=== PATIENT | female | born 1985 | race Two or more races ===

== ENCOUNTER 2020-11-08 10:53 | Inpatient (IN) | payer MEDICARE, MEDICAID ==
[~2020-11-08] VITALS: Ht 160 cm; Wt 73.4 kg
[2020-11-08] VITALS (29 sets, daily range): BP systolic 76–104; BP diastolic 36–145
[2020-11-08] MEDS ORDERED: SODIUM CHLORIDE 0.9% 1,000 ML IVB ONE (12:00)
[2020-11-08 12:04] LABS: Albumin 2.5 g/dL (3.4-5.0); Calcium 6.9 mg/dL (8.5-10.1); Potassium 3.7 mmol/L (3.5-5.1)
[2020-11-08 12:07] LABS: Basophils # (auto) 0 10 ^3/uL (0-0.2); Basophils % (auto) 0.3 % (0.0-2.0); Eosinophils # (auto) 0 10 ^3/uL (0-0.8); Hematocrit 34.3 % (36.0-46.0); Hemoglobin 11.5 g/dL (12.2-16.2); Lymphocytes # (auto) 0.7 10 ^3/uL (0.4-5.4); Lymphocytes % (auto) 12.9 % (10.0-50.0); Mean Corpuscular Hemoglobin 34.4 pg (28.0-32.0); Mean Corpuscular Hgb Conc. 33.4 g/dL (32.0-36.0); Mean Corpuscular Volume 102.8 fL (80.0-100.0); Monocytes # (auto) 0.3 10 ^3/uL (0-1.3); Monocytes % (auto) 4.3 % (0.0-12.0); Neutrophils # (auto) 4.8 10 ^3/uL (1.6-8.6); Neutrophils % (auto) 82.5 % (37.0-80.0); Nucleated Red Blood Cells % 0.3 %; Red Blood Cells 3.34 10^6/uL (4.0-5.20); Red Cell Distribution Width 15.2 % (11.8-14.3); White Blood Cell 5.8 10^3/uL (4.4-10.8)
[2020-11-08 12:09] LABS: BUN/Creatinine Ratio 12.2; Bilirubin, Total 0.2 mg/dL (0.2-1.0); Total Protein 6.6 g/dL (6.4-8.2)
[2020-11-08] MEDS ORDERED: SODIUM CHLORIDE 0.9% 1,000 ML IV ONE ×2 (12:45→13:45)
[2020-11-08] MEDS ORDERED: PROMETHAZINE HCL 25 MG/ML 1ML IV PRN (13:45)
[2020-11-08] MEDS ORDERED: DexAMETHasone SOD PHOS 10MG/1ML VIAL INJ IV ONE (13:45)
[2020-11-08] MEDS ORDERED: ACETAMINOPHEN 500 MG TAB PO PRN (13:45)
[2020-11-08] MEDS ORDERED: ALBUTEROL SULF HFA 90MCG INH 200DOSE IN PRN (13:45)
[2020-11-08] MEDS ORDERED: REMDESIVIR PER PHARMACY 0 ML IV SCH (13:45)
[2020-11-08] MEDS ORDERED: LACTULOSE 20Gm/30ML SOLN PO PRN (13:45)
[2020-11-08] MEDS ORDERED: NITROGLYCERIN 0.4 MG SL TAB SL PRN (13:45)
[2020-11-08] MEDS ORDERED: MORPHINE SULF INJ 2 MG/ML SYRINGE 1ML IV PRN ×2 (13:45)
[2020-11-08] MEDS ORDERED: levoFLOXacin 500MG 100 ML IV ONE (13:45)
[2020-11-08] MEDS: SODIUM CHLORIDE 0.9% 1,000 ML IV SCH (14:33)
[2020-11-08] MEDS: NOREPINEPHRINE 8 MG/250ML KIT 250 ML IV SCH (14:33)
[2020-11-08] MEDS: FAMOTIDINE (10MG/ML) 2ML VL IV SCH (16:42)
[2020-11-08] MEDS ORDERED: REMDESIVIR 200 MG in NS 210ml LOADING DOSE ADULT IV ONE (17:00)
[2020-11-08] MEDS ORDERED: diphenhdrAMINE HCL 50 MG/1 ML VL IV ONE (18:00)
[2020-11-08] MEDS ORDERED: methylPREDNISolone SOD SUCC 40 MG/ML VL IV ONE (18:00)
[2020-11-08] MEDS ORDERED: ACETAMINOPHEN 650 mg PER 20.3 mL UD PO ONE (18:00)
[2020-11-08] MEDS ORDERED: TOCILIZUMAB 400 MG in SODIUM CHL 0.9% 80 ML IV ONE (18:30)
[2020-11-08] MEDS: FLORASTOR (S. BOULARDII) 250 MG CAP PO SCH (21:28)
[2020-11-08] MEDS ORDERED: BUDESONIDE (INHALATION) 180 MCG IH IN SCH (22:00)
[2020-11-08] MEDS: ALBUTEROL SULF 2.5 MG/0.5ML(0.5%) NEB SOLN NEB PRN (22:19)
[2020-11-08] MEDS: BUDESONIDE (INHALATION) 0.5 MG/2 ML NEB NEB SCH (22:20)
[2020-11-08] MEDS: ENOXAPARIN SOD 40 MG/0.4 ML SYRINGE SC SCH (22:23)
[2020-11-09] VITALS (68 sets, daily range): BP systolic 85–120; BP diastolic 48–75
[2020-11-09] MEDS: FAMOTIDINE (10MG/ML) 2ML VL IV SCH ×2 (01:28→14:00)
[2020-11-09 04:14] LABS: Basophils # (auto) 0 10 ^3/uL (0-0.2); Basophils % (auto) 0.1 % (0.0-2.0); Eosinophils # (auto) 0 10 ^3/uL (0-0.8); Lymphocytes # (auto) 0.5 10 ^3/uL (0.4-5.4); Mean Corpuscular Hemoglobin 35.9 pg (28.0-32.0); Monocytes # (auto) 0.2 10 ^3/uL (0-1.3); Red Blood Cells 3.33 10^6/uL (4.0-5.20)
[2020-11-09 04:16] LABS: Hematocrit 34.1 % (36.0-46.0); Lymphocytes % (auto) 8.5 % (10.0-50.0); Mean Corpuscular Hgb Conc. 35.1 g/dL (32.0-36.0); Mean Corpuscular Volume 102.3 fL (80.0-100.0); Monocytes % (auto) 4.2 % (0.0-12.0); Neutrophils # (auto) 4.7 10 ^3/uL (1.6-8.6); Neutrophils % (auto) 87.2 % (37.0-80.0); Nucleated Red Blood Cells % 0.6 %; Red Cell Distribution Width 15.5 % (11.8-14.3); White Blood Cell 5.4 10^3/uL (4.4-10.8)
[2020-11-09 04:34] LABS: Albumin 2.3 g/dL (3.4-5.0); Calcium 6.8 mg/dL (8.5-10.1); Potassium 4.6 mmol/L (3.5-5.1)
[2020-11-09 04:36] LABS: BUN/Creatinine Ratio 13.8
[2020-11-09 04:39] LABS: Bilirubin, Total 0.2 mg/dL (0.2-1.0); Total Protein 6.8 g/dL (6.4-8.2)
[2020-11-09] MEDS: SODIUM CHLORIDE 0.9% 1,000 ML IV SCH ×2 (05:00→16:25)
[2020-11-09] MEDS: ASCORBIC ACID 1,000 MG TAB PO SCH (09:31)
[2020-11-09] MEDS: ZINC SULFATE 220mg CAP or TAB PO SCH (09:31)
[2020-11-09] MEDS: DexAMETHasone SOD PHOS 10MG/1ML VIAL INJ IV SCH (09:31)
[2020-11-09] MEDS: FLORASTOR (S. BOULARDII) 250 MG CAP PO SCH ×2 (09:31→22:00)
[2020-11-09] MEDS: CHOLECALCIFEROL (VITD3) 2,000 UNIT CAP/TAB PO SCH (09:32)
[2020-11-09] MEDS: ENOXAPARIN SOD 40 MG/0.4 ML SYRINGE SC SCH ×2 (09:32→22:00)
[2020-11-09] MEDS ORDERED: ACETAMINOPHEN 650 mg PER 20.3 mL UD PO ONE ×2 (10:00→17:30)
[2020-11-09] MEDS ORDERED: AZIT250T9 PO (10:00)
[2020-11-09] MEDS ORDERED: PROM25TA5 PO (10:00)
[2020-11-09] MEDS ORDERED: LEVO50TA7 PO (10:00)
[2020-11-09] MEDS ORDERED: diphenhdrAMINE HCL 50 MG/1 ML VL IV ONE ×2 (10:00→17:30)
[2020-11-09] MEDS ORDERED: levoFLOXacin 500MG 100 ML IV SCH (10:00)
[2020-11-09] MEDS ORDERED: TOCILIZUMAB 400 MG in SODIUM CHL 0.9% 80 ML IV ONE ×2 (10:30→18:00)
[2020-11-09] MEDS ORDERED: diphenhdrAMINE HCL 50 MG/1 ML VL IV PRN (11:15)
[2020-11-09] MEDS ORDERED: FUROSEMIDE 20 MG/2 ML VIAL IV ONE (11:15)
[2020-11-09] MEDS: BUDESONIDE (INHALATION) 0.5 MG/2 ML NEB NEB SCH ×2 (12:24→22:50)
[2020-11-09] MEDS: NOREPINEPHRINE 8 MG/250ML KIT 250 ML IV SCH (13:45)
[2020-11-09] MEDS: REMDESIVIR 100mg 100 MG in SODIUM CHL 0.9% 230 ML IV SCH (15:30)
[2020-11-09] MEDS ORDERED: methylPREDNISolone SOD SUCC 40 MG/ML VL IV ONE (17:30)
[2020-11-09] MEDS: Ensure Enlive Strawberry 8oz Bottle PO SCH (18:10)
[2020-11-09] MEDS: ALBUTEROL SULF 2.5 MG/0.5ML(0.5%) NEB SOLN NEB PRN (22:50)
[2020-11-10] VITALS (29 sets, daily range): BP systolic 87–98; BP diastolic 47–66
[2020-11-10] MEDS: FAMOTIDINE (10MG/ML) 2ML VL IV SCH ×2 (01:45→12:20)
[2020-11-10 04:11] LABS: Red Blood Cells 3.23 10^6/uL (4.0-5.20); White Blood Cell 3.6 10^3/uL (4.4-10.8)
[2020-11-10 04:13] LABS: Hematocrit 33.2 % (36.0-46.0); Hemoglobin 11.5 g/dL (12.2-16.2); Mean Corpuscular Hemoglobin 35.6 pg (28.0-32.0); Mean Corpuscular Hgb Conc. 34.5 g/dL (32.0-36.0); Red Cell Distribution Width 15.4 % (11.8-14.3)
[2020-11-10 04:25] LABS: Basophils % (manual) 0 (0.0-2.0); Blast Cells 0; Eosinophils % (manual) 0 (0-7); Myelocytes % 0; Promyelocytes % 0; Reactive Lymphocytes 0
[2020-11-10 04:30] LABS: Albumin 2.3 g/dL (3.4-5.0); BUN/Creatinine Ratio 20.9; Calcium 7.3 mg/dL (8.5-10.1); Potassium 4.3 mmol/L (3.5-5.1)
[2020-11-10 04:32] LABS: Bilirubin, Total 0.2 mg/dL (0.2-1.0); Total Protein 6.5 g/dL (6.4-8.2)
[2020-11-10 05:42] LABS: Band Neutrophils % (manual) 20; Lymphocytes % (manual) 9 (10.0-50.0); Metamyelocytes % 1; Monocytes % (manual) 10 (0-12)
[2020-11-10] MEDS: LEVOTHYROXINE SODIUM 50 MCG TAB PO SCH (06:25)
[2020-11-10] MEDS: ALBUTEROL SULF 2.5 MG/0.5ML(0.5%) NEB SOLN NEB PRN ×3 (06:40→20:02)
[2020-11-10] MEDS: BUDESONIDE (INHALATION) 0.5 MG/2 ML NEB NEB SCH ×4 (06:40→20:02)
[2020-11-10] MEDS: ENOXAPARIN SOD 40 MG/0.4 ML SYRINGE SC SCH ×2 (08:23→22:17)
[2020-11-10] MEDS: CHOLECALCIFEROL (VITD3) 2,000 UNIT CAP/TAB PO SCH (08:23)
[2020-11-10] MEDS: ASCORBIC ACID 1,000 MG TAB PO SCH (08:23)
[2020-11-10] MEDS: ZINC SULFATE 220mg CAP or TAB PO SCH (08:23)
[2020-11-10] MEDS: FLORASTOR (S. BOULARDII) 250 MG CAP PO SCH (08:23)
[2020-11-10] MEDS: DexAMETHasone SOD PHOS 10MG/1ML VIAL INJ IV SCH (08:23)
[2020-11-10] MEDS: Ensure Enlive Strawberry 8oz Bottle PO SCH ×3 (08:24→16:30)
[2020-11-10] MEDS: NOREPINEPHRINE 8 MG/250ML KIT 250 ML IV SCH (08:24)
[2020-11-10] MEDS ORDERED: TPN PER PHARMACY 0 ML IV SCH ×2 (11:15→14:30)
[2020-11-10] MEDS ORDERED: FUROSEMIDE 20 MG/2 ML VIAL IV ONE (11:15)
[2020-11-10 13:47] LABS: INR 1.1 (0.9-1.15); Partial Thromboplastin Time 36.3 sec (23.0-31.2)
[2020-11-10 14:13] LABS: Magnesium 2.7 mg/dL (1.6-2.6); Phosphorus 2.3 mg/dL (2.5-4.90)
[2020-11-10 14:18] LABS: Pre Albumin 12.4 mg/dL (20.0-40.0)
[2020-11-10] MEDS: REMDESIVIR 100mg 100 MG in SODIUM CHL 0.9% 230 ML IV SCH (15:03)
[2020-11-10] MEDS ORDERED: SODIUM PHOSPHATES 20 MEQ in SODIUM CHL 0.9% 100 ML IV ONE (15:15)
[2020-11-10] MEDS ORDERED: LIDOCAINE 1% (LOCAL ANESTH.) PF 5ml SDV ID ONE (16:45)
[2020-11-10] MEDS ORDERED: methylPREDNISolone SOD SUCC 40 MG/ML VL IV ONE (17:30)
[2020-11-10] MEDS ORDERED: diphenhdrAMINE HCL 50 MG/1 ML VL IV ONE (17:30)
[2020-11-10] MEDS ORDERED: ACETAMINOPHEN 650 mg PER 20.3 mL UD PO ONE (17:30)
[2020-11-10] MEDS ORDERED: TOCILIZUMAB 400 MG in SODIUM CHL 0.9% 80 ML IV ONE (18:00)
[2020-11-10] MEDS ORDERED: AMINO ACID INFUSION IN D10W 1,000 ML IV NR (20:00)
[2020-11-10] MEDS: SODIUM CHLOR 0.9% PF (SALINE LOCK) 10ML VIAL/SYR IV SCH (22:17)
[2020-11-11] VITALS (45 sets, daily range): BP systolic 83–118; BP diastolic 56–78
[2020-11-11] MEDS ORDERED: DEXTROSE (50%) 50ML SYRG IV SCH
[2020-11-11] MEDS: ACCU-CHEK COMFORT CURVE STRIP VI SCH ×4 (02:49→17:29)
[2020-11-11] MEDS: FAMOTIDINE (10MG/ML) 2ML VL IV SCH ×2 (02:49→14:23)
[2020-11-11] MEDS: InsuLIN REG 1unit/0.01ml Soln (100units/ml) SC SCH ×4 (02:49→17:30)
[2020-11-11 05:01] LABS: Albumin 2.5 g/dL (3.4-5.0); Calcium 7.5 mg/dL (8.5-10.1); Magnesium 2.5 mg/dL (1.6-2.6); Potassium 3.9 mmol/L (3.5-5.1)
[2020-11-11 05:04] LABS: BUN/Creatinine Ratio 23.7; Bilirubin, Total 0.2 mg/dL (0.2-1.0); Phosphorus 2.6 mg/dL (2.5-4.90); Total Protein 6.7 g/dL (6.4-8.2)
[2020-11-11] MEDS: ALBUTEROL SULF 2.5 MG/0.5ML(0.5%) NEB SOLN NEB PRN ×2 (05:49→22:10)
[2020-11-11] MEDS: LEVOTHYROXINE SODIUM 50 MCG TAB PO SCH (06:04)
[2020-11-11] MEDS: Ensure Enlive Strawberry 8oz Bottle PO SCH ×3 (08:00→17:32)
[2020-11-11] MEDS: DexAMETHasone SOD PHOS 10MG/1ML VIAL INJ IV SCH (09:29)
[2020-11-11] MEDS: ENOXAPARIN SOD 40 MG/0.4 ML SYRINGE SC SCH ×2 (09:29→22:12)
[2020-11-11] MEDS: ASCORBIC ACID 1,000 MG TAB PO SCH (09:30)
[2020-11-11] MEDS: CHOLECALCIFEROL (VITD3) 2,000 UNIT CAP/TAB PO SCH (09:30)
[2020-11-11] MEDS: ZINC SULFATE 220mg CAP or TAB PO SCH (09:30)
[2020-11-11] MEDS: FUROSEMIDE 20 MG/2 ML VIAL IV SCH (09:30)
[2020-11-11] MEDS: SODIUM CHLOR 0.9% PF (SALINE LOCK) 10ML VIAL/SYR IV SCH ×2 (09:31→22:12)
[2020-11-11] MEDS: BUDESONIDE (INHALATION) 0.5 MG/2 ML NEB NEB SCH ×2 (09:46→22:11)
[2020-11-11] MEDS ORDERED: INSULIN LANTUS (GLARGINE) 1 /0.01ml (100units/ml) SC ONE (13:00)
[2020-11-11] MEDS: NOREPINEPHRINE 8 MG/250ML KIT 250 ML IV SCH ×2 (14:15→18:37)
[2020-11-11] MEDS: REMDESIVIR 100mg 100 MG in SODIUM CHL 0.9% 230 ML IV SCH (15:04)
[2020-11-11] MEDS ORDERED: TPN PER PHARMACY IV NR ×11 (20:00)
[2020-11-12] VITALS (104 sets, daily range): BP systolic 87–123; BP diastolic 58–85
[2020-11-12] MEDS: InsuLIN REG 1unit/0.01ml Soln (100units/ml) SC SCH ×4 (00:01→17:48)
[2020-11-12] MEDS: FAMOTIDINE (10MG/ML) 2ML VL IV SCH ×2 (01:44→13:45)
[2020-11-12 04:40] LABS: Albumin 2.7 g/dL (3.4-5.0); Calcium 7.6 mg/dL (8.5-10.1); Magnesium 2.4 mg/dL (1.6-2.6); Potassium 3.7 mmol/L (3.5-5.1)
[2020-11-12 04:45] LABS: BUN/Creatinine Ratio 21.2; Bilirubin, Total 0.3 mg/dL (0.2-1.0); Hematocrit 40.8 % (36.0-46.0); Hemoglobin 14.2 g/dL (12.2-16.2); Mean Corpuscular Hemoglobin 35.4 pg (28.0-32.0); Mean Corpuscular Hgb Conc. 34.8 g/dL (32.0-36.0); Mean Corpuscular Volume 101.6 fL (80.0-100.0); Phosphorus 1.9 mg/dL (2.5-4.90); Red Blood Cells 4.02 10^6/uL (4.0-5.20); Red Cell Distribution Width 14.7 % (11.8-14.3); White Blood Cell 7.4 10^3/uL (4.4-10.8)
[2020-11-12 05:16] LABS: Basophils % (manual) 0 (0.0-2.0); Blast Cells 0; Eosinophils % (manual) 0 (0-7); Promyelocytes % 0; Reactive Lymphocytes 0
[2020-11-12] MEDS: ACCU-CHEK COMFORT CURVE STRIP VI SCH ×4 (06:01→17:48)
[2020-11-12] MEDS: LEVOTHYROXINE SODIUM 50 MCG TAB PO SCH (06:03)
[2020-11-12 06:47] LABS: Band Neutrophils % (manual) 9; Lymphocytes % (manual) 11 (10.0-50.0); Metamyelocytes % 1; Monocytes % (manual) 13 (0-12); Myelocytes % 3
[2020-11-12] MEDS: Ensure Enlive Strawberry 8oz Bottle PO SCH ×3 (08:00→18:00)
[2020-11-12] MEDS ORDERED: POTASSIUM PHOSPHATE 44 MEQ in D5W 5% 250 ML IV ONE (08:30)
[2020-11-12] MEDS: BUDESONIDE (INHALATION) 0.5 MG/2 ML NEB NEB SCH ×2 (10:00→18:49)
[2020-11-12] MEDS: DexAMETHasone SOD PHOS 10MG/1ML VIAL INJ IV SCH (11:28)
[2020-11-12] MEDS: FUROSEMIDE 20 MG/2 ML VIAL IV SCH (11:29)
[2020-11-12] MEDS: ASCORBIC ACID 1,000 MG TAB PO SCH (11:30)
[2020-11-12] MEDS: SODIUM CHLOR 0.9% PF (SALINE LOCK) 10ML VIAL/SYR IV SCH ×2 (11:30→22:13)
[2020-11-12] MEDS: CHOLECALCIFEROL (VITD3) 2,000 UNIT CAP/TAB PO SCH (11:31)
[2020-11-12] MEDS: ENOXAPARIN SOD 40 MG/0.4 ML SYRINGE SC SCH ×2 (11:32→22:13)
[2020-11-12] MEDS: INSULIN LANTUS (GLARGINE) 1 /0.01ml (100units/ml) SC SCH ×2 (11:33→22:15)
[2020-11-12] MEDS: ZINC SULFATE 220mg CAP or TAB PO SCH (12:30)
[2020-11-12] MEDS: REMDESIVIR 100mg 100 MG in SODIUM CHL 0.9% 230 ML IV SCH (17:46)
[2020-11-12] MEDS: ALBUTEROL SULF 2.5 MG/0.5ML(0.5%) NEB SOLN NEB PRN (18:49)
[2020-11-12] MEDS: TPN PER PHARMACY IV NR ×12 (20:31)
[2020-11-13] VITALS (95 sets, daily range): BP systolic 75–115; BP diastolic 48–79
[2020-11-13] MEDS: ACCU-CHEK COMFORT CURVE STRIP VI SCH ×5 (00:32→22:32)
[2020-11-13] MEDS: InsuLIN REG 1unit/0.01ml Soln (100units/ml) SC SCH ×4 (00:36→17:58)
[2020-11-13] MEDS: FAMOTIDINE (10MG/ML) 2ML VL IV SCH ×2 (01:47→14:25)
[2020-11-13 04:12] LABS: Potassium 3.9 mmol/L (3.5-5.1)
[2020-11-13 04:17] LABS: Albumin 2.7 g/dL (3.4-5.0); BUN/Creatinine Ratio 24.4; Calcium 8.2 mg/dL (8.5-10.1); Magnesium 2.4 mg/dL (1.6-2.6)
[2020-11-13 04:20] LABS: Bilirubin, Total 0.3 mg/dL (0.2-1.0); Phosphorus 3.3 mg/dL (2.5-4.90); Total Protein 7.3 g/dL (6.4-8.2)
[2020-11-13] MEDS: LEVOTHYROXINE SODIUM 50 MCG TAB PO SCH (06:23)
[2020-11-13] MEDS: Ensure Enlive Strawberry 8oz Bottle PO SCH ×3 (08:00→17:57)
[2020-11-13] MEDS: BUDESONIDE (INHALATION) 0.5 MG/2 ML NEB NEB SCH ×2 (09:17→22:40)
[2020-11-13] MEDS: ALBUTEROL SULF 2.5 MG/0.5ML(0.5%) NEB SOLN NEB PRN ×2 (09:17→22:41)
[2020-11-13] MEDS: DexAMETHasone SOD PHOS 10MG/1ML VIAL INJ IV SCH (09:41)
[2020-11-13] MEDS: CHOLECALCIFEROL (VITD3) 2,000 UNIT CAP/TAB PO SCH (09:42)
[2020-11-13] MEDS: SODIUM CHLOR 0.9% PF (SALINE LOCK) 10ML VIAL/SYR IV SCH ×2 (09:42→22:24)
[2020-11-13] MEDS: FUROSEMIDE 20 MG/2 ML VIAL IV SCH (09:42)
[2020-11-13] MEDS: ZINC SULFATE 220mg CAP or TAB PO SCH (09:42)
[2020-11-13] MEDS: ASCORBIC ACID 1,000 MG TAB PO SCH (09:42)
[2020-11-13] MEDS: INSULIN LANTUS (GLARGINE) 1 /0.01ml (100units/ml) SC SCH ×2 (09:43→22:31)
[2020-11-13] MEDS: ENOXAPARIN SOD 40 MG/0.4 ML SYRINGE SC SCH ×2 (09:43→22:24)
[2020-11-13] MEDS: NOREPINEPHRINE 8 MG/250ML KIT 250 ML IV SCH (13:45)
[2020-11-13] MEDS: TPN PER PHARMACY IV NR ×12 (19:55)
[2020-11-13] MEDS ORDERED: TPN PER PHARMACY IV NR ×11 (20:00)
[2020-11-14] VITALS (101 sets, daily range): BP systolic 84–135; BP diastolic 54–84
[2020-11-14] MEDS: FAMOTIDINE (10MG/ML) 2ML VL IV SCH ×2 (00:26→15:14)
[2020-11-14] MEDS: InsuLIN REG 1unit/0.01ml Soln (100units/ml) SC SCH ×5 (00:28→23:07)
[2020-11-14 04:41] LABS: Albumin 2.8 g/dL (3.4-5.0); Magnesium 2.4 mg/dL (1.6-2.6); Potassium 3.6 mmol/L (3.5-5.1)
[2020-11-14 04:45] LABS: BUN/Creatinine Ratio 32.5; Bilirubin, Total 0.4 mg/dL (0.2-1.0); Phosphorus 3.6 mg/dL (2.5-4.90); Total Protein 6.9 g/dL (6.4-8.2)
[2020-11-14] MEDS: ACCU-CHEK COMFORT CURVE STRIP VI SCH ×4 (06:55→23:06)
[2020-11-14] MEDS: LEVOTHYROXINE SODIUM 50 MCG TAB PO SCH (06:57)
[2020-11-14] MEDS: Ensure Enlive Strawberry 8oz Bottle PO SCH ×3 (08:00→20:41)
[2020-11-14] MEDS: INSULIN LANTUS (GLARGINE) 1 /0.01ml (100units/ml) SC SCH (10:00)
[2020-11-14] MEDS: BUDESONIDE (INHALATION) 0.5 MG/2 ML NEB NEB SCH ×2 (10:00→22:17)
[2020-11-14] MEDS: SODIUM CHLOR 0.9% PF (SALINE LOCK) 10ML VIAL/SYR IV SCH ×2 (10:00→22:40)
[2020-11-14] MEDS: CHOLECALCIFEROL (VITD3) 2,000 UNIT CAP/TAB PO SCH (10:22)
[2020-11-14] MEDS: ASCORBIC ACID 1,000 MG TAB PO SCH (10:23)
[2020-11-14] MEDS: DexAMETHasone SOD PHOS 10MG/1ML VIAL INJ IV SCH (10:23)
[2020-11-14] MEDS: FUROSEMIDE 20 MG/2 ML VIAL IV SCH (10:23)
[2020-11-14] MEDS: ZINC SULFATE 220mg CAP or TAB PO SCH (10:23)
[2020-11-14] MEDS: ENOXAPARIN SOD 40 MG/0.4 ML SYRINGE SC SCH ×2 (10:24→22:40)
[2020-11-14] MEDS: NOREPINEPHRINE 8 MG/250ML KIT 250 ML IV SCH (19:48)
[2020-11-14] MEDS ORDERED: TPN PER PHARMACY IV NR ×11 (20:00)
[2020-11-15] VITALS (53 sets, daily range): BP systolic 89–105; BP diastolic 52–78
[2020-11-15] MEDS: FAMOTIDINE (10MG/ML) 2ML VL IV SCH ×2 (01:33→14:36)
[2020-11-15 05:32] LABS: Eosinophils # (auto) 0 10 ^3/uL (0-0.8); Hemoglobin 14.8 g/dL (12.2-16.2); Lymphocytes # (auto) 0.6 10 ^3/uL (0.4-5.4)
[2020-11-15 05:34] LABS: Basophils # (auto) 0 10 ^3/uL (0-0.2); Basophils % (auto) 0.1 % (0.0-2.0); Hematocrit 43.5 % (36.0-46.0); Lymphocytes % (auto) 4.1 % (10.0-50.0); Mean Corpuscular Hemoglobin 34.8 pg (28.0-32.0); Mean Corpuscular Volume 102.4 fL (80.0-100.0); Monocytes # (auto) 0.8 10 ^3/uL (0-1.3); Monocytes % (auto) 5.3 % (0.0-12.0); Neutrophils # (auto) 14.3 10 ^3/uL (1.6-8.6); Neutrophils % (auto) 90.5 % (37.0-80.0); Nucleated Red Blood Cells % 0.3 %; Red Blood Cells 4.25 10^6/uL (4.0-5.20); White Blood Cell 15.8 10^3/uL (4.4-10.8)
[2020-11-15] MEDS: ACCU-CHEK COMFORT CURVE STRIP VI SCH ×3 (05:38→18:00)
[2020-11-15] MEDS: InsuLIN REG 1unit/0.01ml Soln (100units/ml) SC SCH ×3 (05:39→18:00)
[2020-11-15] MEDS: LEVOTHYROXINE SODIUM 50 MCG TAB PO SCH (05:40)
[2020-11-15 06:05] LABS: Potassium 4.2 mmol/L (3.5-5.1)
[2020-11-15 06:23] LABS: Albumin 2.8 g/dL (3.4-5.0); BUN/Creatinine Ratio 37.2; Bilirubin, Total 0.4 mg/dL (0.2-1.0); Calcium 7.9 mg/dL (8.5-10.1); Magnesium 2.6 mg/dL (1.6-2.6); Phosphorus 3.4 mg/dL (2.5-4.90); Total Protein 6.8 g/dL (6.4-8.2)
[2020-11-15] MEDS: Ensure Enlive Strawberry 8oz Bottle PO SCH ×3 (08:00→18:00)
[2020-11-15] MEDS: BUDESONIDE (INHALATION) 0.5 MG/2 ML NEB NEB SCH ×2 (10:00→22:28)
[2020-11-15] MEDS: FUROSEMIDE 20 MG/2 ML VIAL IV SCH (10:00)
[2020-11-15] MEDS: INSULIN LANTUS (GLARGINE) 1 /0.01ml (100units/ml) SC SCH (10:30)
[2020-11-15] MEDS: ASCORBIC ACID 1,000 MG TAB PO SCH (10:30)
[2020-11-15] MEDS: ENOXAPARIN SOD 40 MG/0.4 ML SYRINGE SC SCH ×2 (10:30→21:26)
[2020-11-15] MEDS: CHOLECALCIFEROL (VITD3) 2,000 UNIT CAP/TAB PO SCH (10:30)
[2020-11-15] MEDS: SODIUM CHLOR 0.9% PF (SALINE LOCK) 10ML VIAL/SYR IV SCH ×2 (10:30→21:26)
[2020-11-15] MEDS: ZINC SULFATE 220mg CAP or TAB PO SCH (10:30)
[2020-11-15] MEDS: DexAMETHasone SOD PHOS 10MG/1ML VIAL INJ IV SCH (10:30)
[2020-11-15] MEDS: NOREPINEPHRINE 8 MG/250ML KIT 250 ML IV SCH (13:45)
[2020-11-15] MEDS ORDERED: TPN PER PHARMACY IV NR ×11 (20:00)
[2020-11-15] MEDS: ALBUTEROL SULF 2.5 MG/0.5ML(0.5%) NEB SOLN NEB PRN (22:28)
[2020-11-16] VITALS (40 sets, daily range): BP systolic 82–111; BP diastolic 46–73
[2020-11-16] MEDS: InsuLIN REG 1unit/0.01ml Soln (100units/ml) SC SCH ×5 (01:29→23:24)
[2020-11-16] MEDS: FAMOTIDINE (10MG/ML) 2ML VL IV SCH ×3 (01:30→23:07)
[2020-11-16] MEDS: ACCU-CHEK COMFORT CURVE STRIP VI SCH ×5 (01:30→23:24)
[2020-11-16 04:44] LABS: Basophils # (auto) 0 10 ^3/uL (0-0.2); Eosinophils # (auto) 0 10 ^3/uL (0-0.8); Hematocrit 41.8 % (36.0-46.0); Hemoglobin 14.6 g/dL (12.2-16.2); Lymphocytes # (auto) 0.7 10 ^3/uL (0.4-5.4); Mean Corpuscular Hgb Conc. 34.8 g/dL (32.0-36.0); White Blood Cell 12.7 10^3/uL (4.4-10.8)
[2020-11-16 04:46] LABS: Basophils % (auto) 0.1 % (0.0-2.0); Eosinophils % (auto) 0.2 % (0.0-7.0); Lymphocytes % (auto) 5.7 % (10.0-50.0); Mean Corpuscular Hemoglobin 35.3 pg (28.0-32.0); Mean Corpuscular Volume 101.3 fL (80.0-100.0); Monocytes # (auto) 0.8 10 ^3/uL (0-1.3); Monocytes % (auto) 6.1 % (0.0-12.0); Neutrophils # (auto) 11.1 10 ^3/uL (1.6-8.6); Neutrophils % (auto) 87.9 % (37.0-80.0); Red Blood Cells 4.12 10^6/uL (4.0-5.20)
[2020-11-16 05:11] LABS: Potassium 3.9 mmol/L (3.5-5.1)
[2020-11-16 05:14] LABS: Albumin 2.7 g/dL (3.4-5.0); BUN/Creatinine Ratio 36.8; Calcium 8.1 mg/dL (8.5-10.1); Magnesium 2.3 mg/dL (1.6-2.6)
[2020-11-16 05:17] LABS: Bilirubin, Total 0.5 mg/dL (0.2-1.0); Phosphorus 3.9 mg/dL (2.5-4.90); Total Protein 6.7 g/dL (6.4-8.2)
[2020-11-16] MEDS: LEVOTHYROXINE SODIUM 50 MCG TAB PO SCH (06:25)
[2020-11-16] MEDS: Ensure Enlive Strawberry 8oz Bottle PO SCH ×3 (08:00→18:00)
[2020-11-16] MEDS: ALBUTEROL SULF 2.5 MG/0.5ML(0.5%) NEB SOLN NEB PRN (09:18)
[2020-11-16] MEDS: BUDESONIDE (INHALATION) 0.5 MG/2 ML NEB NEB SCH ×2 (09:18→22:07)
[2020-11-16] MEDS: CHOLECALCIFEROL (VITD3) 2,000 UNIT CAP/TAB PO SCH (10:00)
[2020-11-16] MEDS: FUROSEMIDE 20 MG/2 ML VIAL IV SCH (10:00)
[2020-11-16] MEDS: ENOXAPARIN SOD 40 MG/0.4 ML SYRINGE SC SCH ×2 (10:00→21:56)
[2020-11-16] MEDS: ASCORBIC ACID 1,000 MG TAB PO SCH (10:00)
[2020-11-16] MEDS: ZINC SULFATE 220mg CAP or TAB PO SCH (10:00)
[2020-11-16] MEDS: DexAMETHasone SOD PHOS 10MG/1ML VIAL INJ IV SCH (11:33)
[2020-11-16] MEDS: SODIUM CHLOR 0.9% PF (SALINE LOCK) 10ML VIAL/SYR IV SCH ×2 (11:33→21:56)
[2020-11-16] MEDS: INSULIN LANTUS (GLARGINE) 1 /0.01ml (100units/ml) SC SCH (11:36)
[2020-11-16] MEDS: NOREPINEPHRINE 8 MG/250ML KIT 250 ML IV SCH (12:35)
[2020-11-16] MEDS ORDERED: TPN PER PHARMACY IV NR ×12 (20:00)
[2020-11-17] VITALS (70 sets, daily range): BP systolic 79–114; BP diastolic 48–75
[2020-11-17 04:43] LABS: Basophils # (auto) 0 10 ^3/uL (0-0.2); Basophils % (auto) 0.1 % (0.0-2.0); Eosinophils # (auto) 0 10 ^3/uL (0-0.8); Hemoglobin 13.8 g/dL (12.2-16.2); Lymphocytes # (auto) 0.5 10 ^3/uL (0.4-5.4); Lymphocytes % (auto) 4.9 % (10.0-50.0); Mean Corpuscular Volume 102.3 fL (80.0-100.0); Monocytes # (auto) 0.6 10 ^3/uL (0-1.3); Monocytes % (auto) 6.4 % (0.0-12.0); Neutrophils # (auto) 8.5 10 ^3/uL (1.6-8.6); Red Blood Cells 3.81 10^6/uL (4.0-5.20); White Blood Cell 9.6 10^3/uL (4.4-10.8)
[2020-11-17 04:45] LABS: Eosinophils % (auto) 0.4 % (0.0-7.0); Mean Corpuscular Hemoglobin 36.2 pg (28.0-32.0); Mean Corpuscular Hgb Conc. 35.3 g/dL (32.0-36.0); Neutrophils % (auto) 88.2 % (37.0-80.0); Red Cell Distribution Width 15.1 % (11.8-14.3)
[2020-11-17 04:56] LABS: Albumin 2.6 g/dL (3.4-5.0); Calcium 7.9 mg/dL (8.5-10.1); Magnesium 2.3 mg/dL (1.6-2.6); Potassium 3.9 mmol/L (3.5-5.1)
[2020-11-17 04:59] LABS: BUN/Creatinine Ratio 36.9
[2020-11-17 05:03] LABS: Bilirubin, Total 0.5 mg/dL (0.2-1.0); Phosphorus 3.5 mg/dL (2.5-4.90); Total Protein 6.3 g/dL (6.4-8.2)
[2020-11-17 05:47] LABS: Pre Albumin 38.7 mg/dL (20.0-40.0)
[2020-11-17] MEDS: LEVOTHYROXINE SODIUM 50 MCG TAB PO SCH (05:51)
[2020-11-17] MEDS: ACCU-CHEK COMFORT CURVE STRIP VI SCH ×3 (05:51→18:00)
[2020-11-17] MEDS: InsuLIN REG 1unit/0.01ml Soln (100units/ml) SC SCH ×3 (05:57→18:00)
[2020-11-17] MEDS: ALBUTEROL SULF 2.5 MG/0.5ML(0.5%) NEB SOLN NEB PRN ×2 (06:51→18:56)
[2020-11-17] MEDS: BUDESONIDE (INHALATION) 0.5 MG/2 ML NEB NEB SCH ×2 (06:51→18:56)
[2020-11-17] MEDS: Ensure Enlive Strawberry 8oz Bottle PO SCH ×3 (08:00→17:13)
[2020-11-17] MEDS: FUROSEMIDE 20 MG/2 ML VIAL IV SCH ×2 (09:06→17:20)
[2020-11-17] MEDS: DexAMETHasone SOD PHOS 10MG/1ML VIAL INJ IV SCH (09:08)
[2020-11-17] MEDS: INSULIN LANTUS (GLARGINE) 1 /0.01ml (100units/ml) SC SCH (09:44)
[2020-11-17] MEDS: ASCORBIC ACID 1,000 MG TAB PO SCH (09:45)
[2020-11-17] MEDS: ZINC SULFATE 220mg CAP or TAB PO SCH (09:45)
[2020-11-17] MEDS: SODIUM CHLOR 0.9% PF (SALINE LOCK) 10ML VIAL/SYR IV SCH ×2 (09:45→22:00)
[2020-11-17] MEDS: CHOLECALCIFEROL (VITD3) 2,000 UNIT CAP/TAB PO SCH (09:46)
[2020-11-17] MEDS: ENOXAPARIN SOD 40 MG/0.4 ML SYRINGE SC SCH (09:57)
[2020-11-17] MEDS: NOREPINEPHRINE 8 MG/250ML KIT 250 ML IV SCH (13:32)
[2020-11-17] MEDS: FAMOTIDINE (10MG/ML) 2ML VL IV SCH (13:32)
[2020-11-17] MEDS ORDERED: TPN PER PHARMACY IV NR ×11 (20:00)
[2020-11-18] VITALS (36 sets, daily range): BP systolic 84–153; BP diastolic 49–78
[2020-11-18] MEDS: FAMOTIDINE (10MG/ML) 2ML VL IV SCH (01:45)
[2020-11-18 04:50] LABS: Albumin 2.8 g/dL (3.4-5.0); Calcium 7.8 mg/dL (8.5-10.1); Magnesium 2.4 mg/dL (1.6-2.6); Potassium 3.7 mmol/L (3.5-5.1)
[2020-11-18 04:54] LABS: BUN/Creatinine Ratio 47.4; Bilirubin, Total 0.5 mg/dL (0.2-1.0); Phosphorus 3.7 mg/dL (2.5-4.90); Total Protein 6.5 g/dL (6.4-8.2)
[2020-11-18] MEDS: InsuLIN REG 1unit/0.01ml Soln (100units/ml) SC SCH ×5 (06:00→23:46)
[2020-11-18] MEDS: ACCU-CHEK COMFORT CURVE STRIP VI SCH ×5 (06:04→23:46)
[2020-11-18] MEDS: LEVOTHYROXINE SODIUM 50 MCG TAB PO SCH (06:04)
[2020-11-18] MEDS: BUDESONIDE (INHALATION) 0.5 MG/2 ML NEB NEB SCH ×2 (06:28→22:18)
[2020-11-18] MEDS: ALBUTEROL SULF 2.5 MG/0.5ML(0.5%) NEB SOLN NEB PRN ×2 (06:28→22:18)
[2020-11-18] MEDS: Ensure Enlive Strawberry 8oz Bottle PO SCH ×3 (08:00→17:39)
[2020-11-18] MEDS: SODIUM CHLOR 0.9% PF (SALINE LOCK) 10ML VIAL/SYR IV SCH ×2 (09:57→22:00)
[2020-11-18] MEDS ORDERED: ENOXAPARIN SOD 40 MG/0.4 ML SYRINGE SC SCH (10:00)
[2020-11-18] MEDS: INSULIN LANTUS (GLARGINE) 1 /0.01ml (100units/ml) SC SCH (10:00)
[2020-11-18] MEDS: ASCORBIC ACID 1,000 MG TAB PO SCH (10:00)
[2020-11-18] MEDS: DexAMETHasone SOD PHOS 10MG/1ML VIAL INJ IV SCH (10:00)
[2020-11-18] MEDS: FUROSEMIDE 20 MG/2 ML VIAL IV SCH (10:00)
[2020-11-18] MEDS: ZINC SULFATE 220mg CAP or TAB PO SCH (10:00)
[2020-11-18] MEDS: CHOLECALCIFEROL (VITD3) 2,000 UNIT CAP/TAB PO SCH (10:00)
[2020-11-18] MEDS ORDERED: LORazepam 2MG/ML-1ML VIAL IV PRN (11:45)
[2020-11-18] MEDS: NOREPINEPHRINE 8 MG/250ML KIT 250 ML IV SCH (13:45)
[2020-11-18] MEDS ORDERED: POTASSIUM CHLORIDE 20 MEQ, LIDOCAINE 1% (LOCAL ANESTH.) 2 ML in SODIUM CHL 0.9% 100 ML IV ONE (15:15)
[2020-11-18] MEDS ORDERED: LEVOTHYROXINE SODIUM 100 MCG/5 ML INJ IV ONE (16:15)
[2020-11-18] MEDS ORDERED: TPN PER PHARMACY IV NR ×12 (20:00)
[2020-11-19] VITALS (78 sets, daily range): BP systolic 82–111; BP diastolic 40–66
[2020-11-19 05:02] LABS: Albumin 2.8 g/dL (3.4-5.0); BUN/Creatinine Ratio 39.1; Bilirubin, Total 0.8 mg/dL (0.2-1.0); Calcium 8.1 mg/dL (8.5-10.1); Magnesium 2.5 mg/dL (1.6-2.6); Phosphorus 3.6 mg/dL (2.5-4.90); Total Protein 6.6 g/dL (6.4-8.2)
[2020-11-19] MEDS: InsuLIN REG 1unit/0.01ml Soln (100units/ml) SC SCH ×3 (06:00→18:04)
[2020-11-19] MEDS: ACCU-CHEK COMFORT CURVE STRIP VI SCH ×3 (06:00→18:04)
[2020-11-19] MEDS ORDERED: MIDAZOLAM HCL 5 MG/ML-1ML VIAL ONE ×2 (07:39→08:07)
[2020-11-19] MEDS ORDERED: MIDAZOLAM DRIP 50 mg/50mL 50 ML IV ONE ×2 (07:41→08:05)
[2020-11-19] MEDS ORDERED: SUCCINYLCHOLINE CHLORIDE 20 MG/ML 10ML VIAL IV ONE (07:43)
[2020-11-19] MEDS ORDERED: ETOMIDATE (2MG/ML) 20ML VIAL IV ONE (07:43)
[2020-11-19] MEDS: Ensure Enlive Strawberry 8oz Bottle PO SCH (08:00)
[2020-11-19] MEDS ORDERED: fentaNYL Drip 2500mCg/250mlNS 250 ML IV ONE (08:10)
[2020-11-19] MEDS ORDERED: PROPOFOL 100 ML IV ONE (08:15)
[2020-11-19] MEDS: fentaNYL Drip 2500mCg/250mlNS 250 ML IV SCH ×2 (10:00→21:40)
[2020-11-19] MEDS: DexAMETHasone SOD PHOS 10MG/1ML VIAL INJ IV SCH (10:00)
[2020-11-19] MEDS: PROPOFOL 100 ML IV SCH (10:00)
[2020-11-19] MEDS: FUROSEMIDE 20 MG/2 ML VIAL IV SCH (10:00)
[2020-11-19] MEDS: LEVOTHYROXINE SODIUM 100 MCG/5 ML INJ IV SCH (10:00)
[2020-11-19] MEDS: INSULIN LANTUS (GLARGINE) 1 /0.01ml (100units/ml) SC SCH (10:00)
[2020-11-19] MEDS: NOREPINEPHRINE 8 MG/250ML KIT 250 ML IV SCH (10:00)
[2020-11-19] MEDS: SODIUM CHLOR 0.9% PF (SALINE LOCK) 10ML VIAL/SYR IV SCH ×2 (10:00→22:00)
[2020-11-19] MEDS: BUDESONIDE (INHALATION) 0.5 MG/2 ML NEB NEB SCH ×2 (10:00→18:58)
[2020-11-19 10:09] LABS: Basophils # (auto) 0.1 10 ^3/uL (0-0.2); Basophils % (auto) 0.5 % (0.0-2.0); Eosinophils # (auto) 0 10 ^3/uL (0-0.8); Eosinophils % (auto) 0.5 % (0.0-7.0); Hematocrit 38.6 % (36.0-46.0); Hemoglobin 13.6 g/dL (12.2-16.2); Lymphocytes # (auto) 0.6 10 ^3/uL (0.4-5.4); Lymphocytes % (auto) 5.8 % (10.0-50.0); Mean Corpuscular Hemoglobin 36.1 pg (28.0-32.0); Mean Corpuscular Hgb Conc. 35.3 g/dL (32.0-36.0); Mean Corpuscular Volume 102.3 fL (80.0-100.0); Monocytes # (auto) 0.5 10 ^3/uL (0-1.3); Monocytes % (auto) 5.5 % (0.0-12.0); Neutrophils # (auto) 8.7 10 ^3/uL (1.6-8.6); Neutrophils % (auto) 87.7 % (37.0-80.0); Nucleated Red Blood Cells % 0.1 %; Red Blood Cells 3.77 10^6/uL (4.0-5.20); Red Cell Distribution Width 15.2 % (11.8-14.3); White Blood Cell 9.9 10^3/uL (4.4-10.8)
[2020-11-19] MEDS: MIDAZOLAM DRIP 50 mg/50mL 50 ML IV SCH (16:19)
[2020-11-19] MEDS: ALBUTEROL SULF 2.5 MG/0.5ML(0.5%) NEB SOLN NEB PRN (18:58)
[2020-11-19] MEDS ORDERED: TPN PER PHARMACY IV NR ×12 (20:00)
[2020-11-20] VITALS (104 sets, daily range): BP systolic 91–180; BP diastolic 51–98
[2020-11-20] MEDS: ACCU-CHEK COMFORT CURVE STRIP VI SCH ×5 (00:06→23:15)
[2020-11-20] MEDS: InsuLIN REG 1unit/0.01ml Soln (100units/ml) SC SCH ×5 (00:07→23:13)
[2020-11-20] MEDS: PROPOFOL 100 ML IV SCH ×3 (00:12→21:43)
[2020-11-20 04:29] LABS: Eosinophils # (auto) 0 10 ^3/uL (0-0.8); Monocytes # (auto) 0.8 10 ^3/uL (0-1.3); White Blood Cell 14.2 10^3/uL (4.4-10.8)
[2020-11-20 04:32] LABS: Basophils # (auto) 0.1 10 ^3/uL (0-0.2); Basophils % (auto) 0.4 % (0.0-2.0); Hematocrit 37.4 % (36.0-46.0); Hemoglobin 13.2 g/dL (12.2-16.2); Lymphocytes # (auto) 0.5 10 ^3/uL (0.4-5.4); Lymphocytes % (auto) 3.8 % (10.0-50.0); Mean Corpuscular Hgb Conc. 35.4 g/dL (32.0-36.0); Mean Corpuscular Volume 101.7 fL (80.0-100.0); Monocytes % (auto) 5.9 % (0.0-12.0); Neutrophils # (auto) 12.8 10 ^3/uL (1.6-8.6); Neutrophils % (auto) 89.9 % (37.0-80.0); Nucleated Red Blood Cells % 0.1 %; Red Blood Cells 3.67 10^6/uL (4.0-5.20); Red Cell Distribution Width 14.3 % (11.8-14.3)
[2020-11-20 04:47] LABS: Albumin 2.8 g/dL (3.4-5.0); Calcium 8.2 mg/dL (8.5-10.1); Potassium 4.3 mmol/L (3.5-5.1)
[2020-11-20 04:53] LABS: BUN/Creatinine Ratio 35.6; Bilirubin, Total 0.4 mg/dL (0.2-1.0); Magnesium 2.2 mg/dL (1.6-2.6); Phosphorus 4.2 mg/dL (2.5-4.90); Total Protein 6.7 g/dL (6.4-8.2)
[2020-11-20] MEDS: BUDESONIDE (INHALATION) 0.5 MG/2 ML NEB NEB SCH ×2 (06:38→18:47)
[2020-11-20] MEDS: ALBUTEROL SULF 2.5 MG/0.5ML(0.5%) NEB SOLN NEB PRN ×2 (06:38→18:46)
[2020-11-20] MEDS: MIDAZOLAM DRIP 50 mg/50mL 50 ML IV SCH (10:00)
[2020-11-20] MEDS: DexAMETHasone SOD PHOS 10MG/1ML VIAL INJ IV SCH (10:25)
[2020-11-20] MEDS: SODIUM CHLOR 0.9% PF (SALINE LOCK) 10ML VIAL/SYR IV SCH ×2 (10:26→20:26)
[2020-11-20] MEDS: LEVOTHYROXINE SODIUM 100 MCG/5 ML INJ IV SCH (10:26)
[2020-11-20] MEDS: FUROSEMIDE 20 MG/2 ML VIAL IV SCH (10:26)
[2020-11-20] MEDS: ENOXAPARIN SOD 40 MG/0.4 ML SYRINGE SC SCH (10:27)
[2020-11-20] MEDS: INSULIN LANTUS (GLARGINE) 1 /0.01ml (100units/ml) SC SCH (10:32)
[2020-11-20] MEDS ORDERED: levoFLOXacin 750MG 150 ML IV ONE (10:45)
[2020-11-20] MEDS: NOREPINEPHRINE 8 MG/250ML KIT 250 ML IV SCH (11:05)
[2020-11-20 12:26] LABS: Urine Bacteria NONE SEEN /hpf (None Seen); Urine Blood Negative /uL (Negative); Urine Specific Gravity 1.007 (1.001-1.035); Urine WBC 1 /hpf (0 - 5)
[2020-11-20] MEDS: METOCLOPRAMIDE HCL 5MG/ml INJ 2ml VIAL IV SCH ×2 (14:51→20:26)
[2020-11-20] MEDS: fentaNYL Drip 2500mCg/250mlNS 250 ML IV SCH (19:51)
[2020-11-20] MEDS ORDERED: [UNRECOGNIZED DRUG - OTHER] IV SCH ×11 (20:00)
[2020-11-20] MEDS ORDERED: SODIUM PHOSPHATES IV SCH ×11 (20:00)
[2020-11-20] MEDS ORDERED: POTASSIUM CHLORIDE IV SCH ×11 (20:00)
[2020-11-20] MEDS ORDERED: SODIUM CHLORIDE IV SCH ×11 (20:00)
[2020-11-21] VITALS (106 sets, daily range): BP systolic 83–134; BP diastolic 45–81
[2020-11-21 04:04] LABS: Eosinophils # (auto) 0 10 ^3/uL (0-0.8); Eosinophils % (auto) 0.1 % (0.0-7.0); Hemoglobin 12.4 g/dL (12.2-16.2); Lymphocytes # (auto) 0.7 10 ^3/uL (0.4-5.4); Neutrophils % (auto) 85.6 % (37.0-80.0); Nucleated Red Blood Cells % 0.1 %
[2020-11-21 04:07] LABS: Basophils # (auto) 0 10 ^3/uL (0-0.2); Basophils % (auto) 0.3 % (0.0-2.0); Hematocrit 35.1 % (36.0-46.0); Lymphocytes % (auto) 6.1 % (10.0-50.0); Mean Corpuscular Hgb Conc. 35.5 g/dL (32.0-36.0); Mean Corpuscular Volume 101.5 fL (80.0-100.0); Monocytes # (auto) 0.9 10 ^3/uL (0-1.3); Monocytes % (auto) 7.9 % (0.0-12.0); Neutrophils # (auto) 10.2 10 ^3/uL (1.6-8.6); Red Blood Cells 3.46 10^6/uL (4.0-5.20); Red Cell Distribution Width 14.4 % (11.8-14.3); White Blood Cell 11.9 10^3/uL (4.4-10.8)
[2020-11-21 04:20] LABS: Albumin 2.8 g/dL (3.4-5.0); Calcium 7.9 mg/dL (8.5-10.1); Magnesium 2.2 mg/dL (1.6-2.6); Potassium 3.9 mmol/L (3.5-5.1)
[2020-11-21 04:24] LABS: BUN/Creatinine Ratio 37.9; Bilirubin, Total 0.4 mg/dL (0.2-1.0); Phosphorus 2.9 mg/dL (2.5-4.90); Total Protein 6.2 g/dL (6.4-8.2)
[2020-11-21] MEDS: METOCLOPRAMIDE HCL 5MG/ml INJ 2ml VIAL IV SCH ×3 (06:11→20:31)
[2020-11-21] MEDS: InsuLIN REG 1unit/0.01ml Soln (100units/ml) SC SCH ×3 (06:12→18:00)
[2020-11-21] MEDS: ACCU-CHEK COMFORT CURVE STRIP VI SCH ×3 (06:12→18:00)
[2020-11-21] MEDS: PROPOFOL 100 ML IV SCH (06:13)
[2020-11-21] MEDS: NOREPINEPHRINE 8 MG/250ML KIT 250 ML IV SCH (10:00)
[2020-11-21] MEDS: DexAMETHasone SOD PHOS 10MG/1ML VIAL INJ IV SCH (10:56)
[2020-11-21] MEDS: FUROSEMIDE 20 MG/2 ML VIAL IV SCH (10:57)
[2020-11-21] MEDS: levoFLOXacin 750MG 150 ML IV SCH (10:58)
[2020-11-21] MEDS: LEVOTHYROXINE SODIUM 100 MCG/5 ML INJ IV SCH (10:58)
[2020-11-21] MEDS: SODIUM CHLOR 0.9% PF (SALINE LOCK) 10ML VIAL/SYR IV SCH ×2 (10:58→19:58)
[2020-11-21] MEDS: ENOXAPARIN SOD 40 MG/0.4 ML SYRINGE SC SCH (10:59)
[2020-11-21] MEDS: ALBUTEROL SULF 2.5 MG/0.5ML(0.5%) NEB SOLN NEB PRN (12:46)
[2020-11-21] MEDS: BUDESONIDE (INHALATION) 0.5 MG/2 ML NEB NEB SCH ×2 (12:46→22:51)
[2020-11-21] MEDS: MIDAZOLAM DRIP 50 mg/50mL 50 ML IV SCH (15:00)
[2020-11-21] MEDS: INSULIN LANTUS (GLARGINE) 1 /0.01ml (100units/ml) SC SCH (15:50)
[2020-11-21] MEDS ORDERED: TPN PER PHARMACY IV NR ×11 (20:00)
[2020-11-22] VITALS (109 sets, daily range): BP systolic 91–124; BP diastolic 47–80
[2020-11-22] MEDS: ACCU-CHEK COMFORT CURVE STRIP VI SCH ×5 (00:08→23:20)
[2020-11-22] MEDS: InsuLIN REG 1unit/0.01ml Soln (100units/ml) SC SCH ×5 (00:09→23:20)
[2020-11-22] MEDS: PROPOFOL 100 ML IV SCH ×3 (00:36→21:21)
[2020-11-22] MEDS: NOREPINEPHRINE 8 MG/250ML KIT 250 ML IV SCH ×2 (00:36→17:10)
[2020-11-22] MEDS: MIDAZOLAM DRIP 50 mg/50mL 50 ML IV SCH ×2 (00:37→06:56)
[2020-11-22 04:55] LABS: Potassium 3.8 mmol/L (3.5-5.1)
[2020-11-22 04:57] LABS: Basophils # (auto) 0.1 10 ^3/uL (0-0.2); Basophils % (auto) 0.6 % (0.0-2.0); Eosinophils # (auto) 0 10 ^3/uL (0-0.8); Hematocrit 37.3 % (36.0-46.0); Hemoglobin 12.9 g/dL (12.2-16.2); Lymphocytes # (auto) 0.6 10 ^3/uL (0.4-5.4); Mean Corpuscular Hemoglobin 35.3 pg (28.0-32.0); Mean Corpuscular Hgb Conc. 34.4 g/dL (32.0-36.0); Mean Corpuscular Volume 102.5 fL (80.0-100.0); Monocytes # (auto) 0.8 10 ^3/uL (0-1.3); Monocytes % (auto) 5.5 % (0.0-12.0); Neutrophils # (auto) 13.8 10 ^3/uL (1.6-8.6); Neutrophils % (auto) 89.9 % (37.0-80.0); Red Blood Cells 3.64 10^6/uL (4.0-5.20); Red Cell Distribution Width 14.6 % (11.8-14.3); White Blood Cell 15.3 10^3/uL (4.4-10.8)
[2020-11-22 05:04] LABS: Pre Albumin 41.3 mg/dL (20.0-40.0)
[2020-11-22 05:05] LABS: Albumin 2.9 g/dL (3.4-5.0); BUN/Creatinine Ratio 37.3; Bilirubin, Total 0.3 mg/dL (0.2-1.0); Magnesium 2.4 mg/dL (1.6-2.6); Phosphorus 2.7 mg/dL (2.5-4.90); Total Protein 6.6 g/dL (6.4-8.2)
[2020-11-22] MEDS: METOCLOPRAMIDE HCL 5MG/ml INJ 2ml VIAL IV SCH ×3 (05:33→20:55)
[2020-11-22] MEDS: fentaNYL Drip 2500mCg/250mlNS 250 ML IV SCH ×2 (06:55→21:20)
[2020-11-22] MEDS: BUDESONIDE (INHALATION) 0.5 MG/2 ML NEB NEB SCH ×2 (07:10→22:06)
[2020-11-22] MEDS: DexAMETHasone SOD PHOS 10MG/1ML VIAL INJ IV SCH (10:33)
[2020-11-22] MEDS: SODIUM CHLOR 0.9% PF (SALINE LOCK) 10ML VIAL/SYR IV SCH ×2 (10:33→20:24)
[2020-11-22] MEDS: levoFLOXacin 750MG 150 ML IV SCH (10:33)
[2020-11-22] MEDS: LEVOTHYROXINE SODIUM 100 MCG/5 ML INJ IV SCH (10:34)
[2020-11-22] MEDS: ENOXAPARIN SOD 40 MG/0.4 ML SYRINGE SC SCH (10:34)
[2020-11-22] MEDS: FUROSEMIDE 20 MG/2 ML VIAL IV SCH (10:35)
[2020-11-22] MEDS: INSULIN LANTUS (GLARGINE) 1 /0.01ml (100units/ml) SC SCH (11:13)
[2020-11-22] MEDS ORDERED: TPN PER PHARMACY IV NR ×9 (20:00)
[2020-11-22] MEDS: ALBUTEROL SULF 2.5 MG/0.5ML(0.5%) NEB SOLN NEB PRN (22:06)
[2020-11-23] VITALS (108 sets, daily range): BP systolic 89–122; BP diastolic 45–77
[2020-11-23 04:38] LABS: Hematocrit 35.6 % (36.0-46.0); Hemoglobin 12.5 g/dL (12.2-16.2); Mean Corpuscular Hemoglobin 35.6 pg (28.0-32.0); Mean Corpuscular Hgb Conc. 35.1 g/dL (32.0-36.0); Mean Corpuscular Volume 101.4 fL (80.0-100.0); Red Blood Cells 3.51 10^6/uL (4.0-5.20); Red Cell Distribution Width 14.9 % (11.8-14.3); White Blood Cell 14.6 10^3/uL (4.4-10.8)
[2020-11-23 04:49] LABS: Band Neutrophils % (manual) 0; Basophils % (manual) 0 (0.0-2.0); Blast Cells 0; Myelocytes % 0; Promyelocytes % 0; Reactive Lymphocytes 0
[2020-11-23 04:57] LABS: Potassium 3.9 mmol/L (3.5-5.1)
[2020-11-23 05:04] LABS: Albumin 2.7 g/dL (3.4-5.0); BUN/Creatinine Ratio 50.9; Bilirubin, Total 0.3 mg/dL (0.2-1.0); Calcium 8.1 mg/dL (8.5-10.1); Magnesium 2.5 mg/dL (1.6-2.6); Phosphorus 3.4 mg/dL (2.5-4.90); Total Protein 6.4 g/dL (6.4-8.2)
[2020-11-23] MEDS: METOCLOPRAMIDE HCL 5MG/ml INJ 2ml VIAL IV SCH ×3 (05:44→20:26)
[2020-11-23] MEDS: InsuLIN REG 1unit/0.01ml Soln (100units/ml) SC SCH ×5 (05:58→23:17)
[2020-11-23] MEDS: ACCU-CHEK COMFORT CURVE STRIP VI SCH ×5 (05:58→23:17)
[2020-11-23 06:21] LABS: Eosinophils % (manual) 1 (0-7); Lymphocytes % (manual) 8 (10.0-50.0); Metamyelocytes % 2; Monocytes % (manual) 5 (0-12)
[2020-11-23] MEDS: ALBUTEROL SULF 2.5 MG/0.5ML(0.5%) NEB SOLN NEB PRN ×2 (06:25→18:59)
[2020-11-23] MEDS: BUDESONIDE (INHALATION) 0.5 MG/2 ML NEB NEB SCH ×2 (06:25→18:59)
[2020-11-23] MEDS: MIDAZOLAM DRIP 50 mg/50mL 50 ML IV SCH (07:21)
[2020-11-23] MEDS: PROPOFOL 100 ML IV SCH (09:17)
[2020-11-23] MEDS: NOREPINEPHRINE 8 MG/250ML KIT 250 ML IV SCH (10:00)
[2020-11-23] MEDS: DexAMETHasone SOD PHOS 10MG/1ML VIAL INJ IV SCH (10:14)
[2020-11-23] MEDS: FUROSEMIDE 20 MG/2 ML VIAL IV SCH (10:15)
[2020-11-23] MEDS: levoFLOXacin 750MG 150 ML IV SCH (10:15)
[2020-11-23] MEDS: LEVOTHYROXINE SODIUM 100 MCG/5 ML INJ IV SCH (10:16)
[2020-11-23] MEDS: SODIUM CHLOR 0.9% PF (SALINE LOCK) 10ML VIAL/SYR IV SCH ×2 (10:16→20:26)
[2020-11-23] MEDS: ENOXAPARIN SOD 40 MG/0.4 ML SYRINGE SC SCH (10:17)
[2020-11-23] MEDS: INSULIN LANTUS (GLARGINE) 1 /0.01ml (100units/ml) SC SCH (10:40)
[2020-11-23] MEDS: fentaNYL Drip 2500mCg/250mlNS 250 ML IV SCH (12:36)
[2020-11-23] MEDS ORDERED: TPN PER PHARMACY IV NR ×9 (20:00)
[2020-11-24] VITALS (107 sets, daily range): BP systolic 87–129; BP diastolic 45–84
[2020-11-24 04:17] LABS: Hematocrit 35.8 % (36.0-46.0)
[2020-11-24 04:19] LABS: Hemoglobin 12.5 g/dL (12.2-16.2); Mean Corpuscular Hemoglobin 35.3 pg (28.0-32.0); Mean Corpuscular Hgb Conc. 34.7 g/dL (32.0-36.0); Mean Corpuscular Volume 101.6 fL (80.0-100.0); Red Blood Cells 3.53 10^6/uL (4.0-5.20); Red Cell Distribution Width 14.7 % (11.8-14.3); White Blood Cell 14.2 10^3/uL (4.4-10.8)
[2020-11-24 04:29] LABS: Basophils % (manual) 0 (0.0-2.0); Blast Cells 0; Eosinophils % (manual) 0 (0-7); Promyelocytes % 0; Reactive Lymphocytes 0
[2020-11-24 04:31] LABS: Albumin 2.7 g/dL (3.4-5.0); Calcium 7.9 mg/dL (8.5-10.1); Potassium 3.7 mmol/L (3.5-5.1)
[2020-11-24 04:37] LABS: Bilirubin, Total 0.4 mg/dL (0.2-1.0); Magnesium 2.6 mg/dL (1.6-2.6); Phosphorus 2.8 mg/dL (2.5-4.90); Total Protein 6.4 g/dL (6.4-8.2)
[2020-11-24 05:56] LABS: Band Neutrophils % (manual) 19; Lymphocytes % (manual) 6 (10.0-50.0); Metamyelocytes % 7; Monocytes % (manual) 5 (0-12); Myelocytes % 2
[2020-11-24] MEDS: ACCU-CHEK COMFORT CURVE STRIP VI SCH ×3 (06:00→17:58)
[2020-11-24] MEDS: METOCLOPRAMIDE HCL 5MG/ml INJ 2ml VIAL IV SCH ×3 (06:57→21:38)
[2020-11-24] MEDS: InsuLIN REG 1unit/0.01ml Soln (100units/ml) SC SCH ×3 (06:58→18:00)
[2020-11-24] MEDS: NOREPINEPHRINE 8 MG/250ML KIT 250 ML IV SCH (07:10)
[2020-11-24] MEDS: MIDAZOLAM DRIP 50 mg/50mL 50 ML IV SCH ×2 (07:11→18:09)
[2020-11-24] MEDS: fentaNYL Drip 2500mCg/250mlNS 250 ML IV SCH (07:15)
[2020-11-24] MEDS: PROPOFOL 100 ML IV SCH ×2 (07:15→12:07)
[2020-11-24] MEDS: BUDESONIDE (INHALATION) 0.5 MG/2 ML NEB NEB SCH ×2 (07:34→18:57)
[2020-11-24] MEDS: ALBUTEROL SULF 2.5 MG/0.5ML(0.5%) NEB SOLN NEB PRN ×2 (07:34→18:57)
[2020-11-24] MEDS: FUROSEMIDE 20 MG/2 ML VIAL IV SCH (09:53)
[2020-11-24] MEDS: levoFLOXacin 750MG 150 ML IV SCH (09:54)
[2020-11-24] MEDS: LEVOTHYROXINE SODIUM 100 MCG/5 ML INJ IV SCH (09:54)
[2020-11-24] MEDS: SODIUM CHLOR 0.9% PF (SALINE LOCK) 10ML VIAL/SYR IV SCH ×2 (09:54→21:38)
[2020-11-24] MEDS: DexAMETHasone SOD PHOS 10MG/1ML VIAL INJ IV SCH (09:54)
[2020-11-24] MEDS: ENOXAPARIN SOD 40 MG/0.4 ML SYRINGE SC SCH (09:55)
[2020-11-24] MEDS: INSULIN LANTUS (GLARGINE) 1 /0.01ml (100units/ml) SC SCH (09:55)
[2020-11-24] MEDS ORDERED: PANTOPRAZOLE 40 MG/10 ML VIAL INJ IV ONE (16:15)
[2020-11-24] MEDS ORDERED: TPN PER PHARMACY IV NR ×9 (20:00)
[2020-11-25] VITALS (103 sets, daily range): BP systolic 86–126; BP diastolic 44–82
[2020-11-25] MEDS: ACCU-CHEK COMFORT CURVE STRIP VI SCH ×4 (00:21→17:24)
[2020-11-25] MEDS: InsuLIN REG 1unit/0.01ml Soln (100units/ml) SC SCH ×4 (00:21→18:28)
[2020-11-25 04:52] LABS: Hematocrit 36.3 % (36.0-46.0); White Blood Cell 14.6 10^3/uL (4.4-10.8)
[2020-11-25 04:54] LABS: Hemoglobin 12.6 g/dL (12.2-16.2); Mean Corpuscular Hemoglobin 35.6 pg (28.0-32.0); Mean Corpuscular Hgb Conc. 34.6 g/dL (32.0-36.0); Mean Corpuscular Volume 102.7 fL (80.0-100.0); Red Blood Cells 3.53 10^6/uL (4.0-5.20)
[2020-11-25 05:07] LABS: Albumin 2.6 g/dL (3.4-5.0); Magnesium 2.7 mg/dL (1.6-2.6); Potassium 3.8 mmol/L (3.5-5.1)
[2020-11-25 05:09] LABS: Basophils % (manual) 0 (0.0-2.0); Blast Cells 0; Eosinophils % (manual) 0 (0-7); Myelocytes % 0; Promyelocytes % 0; Reactive Lymphocytes 0
[2020-11-25 05:11] LABS: BUN/Creatinine Ratio 54.5; Bilirubin, Total 0.5 mg/dL (0.2-1.0); Total Protein 6.2 g/dL (6.4-8.2)
[2020-11-25] MEDS: METOCLOPRAMIDE HCL 5MG/ml INJ 2ml VIAL IV SCH ×3 (05:56→21:29)
[2020-11-25] MEDS: BUDESONIDE (INHALATION) 0.5 MG/2 ML NEB NEB SCH ×2 (06:24→18:43)
[2020-11-25] MEDS: ALBUTEROL SULF 2.5 MG/0.5ML(0.5%) NEB SOLN NEB PRN ×2 (06:24→18:42)
[2020-11-25 07:20] LABS: Band Neutrophils % (manual) 2; Lymphocytes % (manual) 6 (10.0-50.0); Metamyelocytes % 2; Monocytes % (manual) 3 (0-12)
[2020-11-25] MEDS: FUROSEMIDE 20 MG/2 ML VIAL IV SCH (08:42)
[2020-11-25] MEDS: DexAMETHasone SOD PHOS 10MG/1ML VIAL INJ IV SCH (08:42)
[2020-11-25] MEDS: PANTOPRAZOLE 40 MG/10 ML VIAL INJ IV SCH (08:42)
[2020-11-25] MEDS: ENOXAPARIN SOD 40 MG/0.4 ML SYRINGE SC SCH (08:43)
[2020-11-25] MEDS: LEVOTHYROXINE SODIUM 100 MCG/5 ML INJ IV SCH (08:43)
[2020-11-25] MEDS: INSULIN LANTUS (GLARGINE) 1 /0.01ml (100units/ml) SC SCH (08:44)
[2020-11-25] MEDS: SODIUM CHLOR 0.9% PF (SALINE LOCK) 10ML VIAL/SYR IV SCH ×2 (10:22→21:29)
[2020-11-25] MEDS: NOREPINEPHRINE 8 MG/250ML KIT 250 ML IV SCH (10:22)
[2020-11-25] MEDS: levoFLOXacin 750MG 150 ML IV SCH (10:37)
[2020-11-25] MEDS: fentaNYL Drip 2500mCg/250mlNS 250 ML IV SCH ×2 (10:39→23:12)
[2020-11-25] MEDS ORDERED: Jevity 1.2 Cal/Fiber 1 Liter GT SCH (11:45)
[2020-11-25] MEDS: AMPICILLIN INJ 1 GM in SODIUM CHL 0.9% 50 ML IV SCH ×2 (18:26→23:49)
[2020-11-25] MEDS ORDERED: TPN PER PHARMACY IV ONE ×10 (20:00)
[2020-11-25] MEDS: PROPOFOL 100 ML IV SCH (22:58)
[2020-11-26] VITALS (104 sets, daily range): BP systolic 86–136; BP diastolic 48–92
[2020-11-26] MEDS: ACCU-CHEK COMFORT CURVE STRIP VI SCH ×5 (00:09→23:53)
[2020-11-26] MEDS: InsuLIN REG 1unit/0.01ml Soln (100units/ml) SC SCH ×5 (00:10→23:55)
[2020-11-26 04:16] LABS: Hematocrit 37.4 % (36.0-46.0); Mean Corpuscular Hemoglobin 35.6 pg (28.0-32.0); Mean Corpuscular Hgb Conc. 34.6 g/dL (32.0-36.0); Mean Corpuscular Volume 102.8 fL (80.0-100.0); Red Blood Cells 3.64 10^6/uL (4.0-5.20); Red Cell Distribution Width 15.6 % (11.8-14.3); White Blood Cell 14.9 10^3/uL (4.4-10.8)
[2020-11-26] MEDS: MIDAZOLAM DRIP 50 mg/50mL 50 ML IV SCH ×3 (04:21→23:57)
[2020-11-26 04:33] LABS: Band Neutrophils % (manual) 0; Basophils % (manual) 0 (0.0-2.0); Blast Cells 0; Eosinophils % (manual) 0 (0-7); Metamyelocytes % 0; Myelocytes % 0; Promyelocytes % 0; Reactive Lymphocytes 0
[2020-11-26 04:34] LABS: Potassium 3.6 mmol/L (3.5-5.1)
[2020-11-26 04:43] LABS: Albumin 2.7 g/dL (3.4-5.0); BUN/Creatinine Ratio 60.4; Bilirubin, Total 0.5 mg/dL (0.2-1.0); Calcium 7.7 mg/dL (8.5-10.1); Magnesium 2.5 mg/dL (1.6-2.6); Phosphorus 2.6 mg/dL (2.5-4.90); Total Protein 6.3 g/dL (6.4-8.2)
[2020-11-26 05:16] LABS: Lymphocytes % (manual) 3 (10.0-50.0); Monocytes % (manual) 9 (0-12)
[2020-11-26] MEDS: METOCLOPRAMIDE HCL 5MG/ml INJ 2ml VIAL IV SCH ×3 (05:46→21:43)
[2020-11-26] MEDS: AMPICILLIN INJ 1 GM in SODIUM CHL 0.9% 50 ML IV SCH ×4 (05:46→23:53)
[2020-11-26] MEDS: NOREPINEPHRINE 8 MG/250ML KIT 250 ML IV SCH ×2 (10:00→22:53)
[2020-11-26] MEDS: BUDESONIDE (INHALATION) 0.5 MG/2 ML NEB NEB SCH ×2 (10:10→19:18)
[2020-11-26] MEDS: PANTOPRAZOLE 40 MG/10 ML VIAL INJ IV SCH (10:21)
[2020-11-26] MEDS: DexAMETHasone SOD PHOS 10MG/1ML VIAL INJ IV SCH (10:21)
[2020-11-26] MEDS: INSULIN LANTUS (GLARGINE) 1 /0.01ml (100units/ml) SC SCH (10:21)
[2020-11-26] MEDS: FUROSEMIDE 20 MG/2 ML VIAL IV SCH (10:21)
[2020-11-26] MEDS: ENOXAPARIN SOD 40 MG/0.4 ML SYRINGE SC SCH (10:22)
[2020-11-26] MEDS: LEVOTHYROXINE SODIUM 100 MCG/5 ML INJ IV SCH (10:22)
[2020-11-26] MEDS: SODIUM CHLOR 0.9% PF (SALINE LOCK) 10ML VIAL/SYR IV SCH ×2 (10:22→21:43)
[2020-11-26] MEDS ORDERED: Jevity 1.2 Cal/Fiber 1 Liter GT SCH (12:00)
[2020-11-26] MEDS: PROPOFOL 100 ML IV SCH (13:06)
[2020-11-26] MEDS: fentaNYL Drip 2500mCg/250mlNS 250 ML IV SCH (15:32)
[2020-11-26] MEDS: ALBUTEROL SULF 2.5 MG/0.5ML(0.5%) NEB SOLN NEB PRN (19:18)
[2020-11-26] MEDS ORDERED: TPN PER PHARMACY IV ONE ×10 (20:00)
[2020-11-27] VITALS (107 sets, daily range): BP systolic 86–123; BP diastolic 42–83
[2020-11-27 04:45] LABS: Albumin 2.6 g/dL (3.4-5.0); BUN/Creatinine Ratio 54.7; Calcium 7.7 mg/dL (8.5-10.1); Magnesium 2.4 mg/dL (1.6-2.6); Potassium 3.8 mmol/L (3.5-5.1)
[2020-11-27 04:56] LABS: Bilirubin, Total 0.5 mg/dL (0.2-1.0); Phosphorus 3.6 mg/dL (2.5-4.90); Total Protein 6.4 g/dL (6.4-8.2)
[2020-11-27] MEDS: METOCLOPRAMIDE HCL 5MG/ml INJ 2ml VIAL IV SCH ×3 (06:14→21:30)
[2020-11-27] MEDS: AMPICILLIN INJ 1 GM in SODIUM CHL 0.9% 50 ML IV SCH ×3 (06:14→18:38)
[2020-11-27] MEDS: ACCU-CHEK COMFORT CURVE STRIP VI SCH ×3 (06:16→18:38)
[2020-11-27] MEDS: InsuLIN REG 1unit/0.01ml Soln (100units/ml) SC SCH ×3 (06:17→18:39)
[2020-11-27] MEDS: fentaNYL Drip 2500mCg/250mlNS 250 ML IV SCH ×2 (06:41→22:30)
[2020-11-27] MEDS: BUDESONIDE (INHALATION) 0.5 MG/2 ML NEB NEB SCH ×2 (09:30→19:33)
[2020-11-27] MEDS: ALBUTEROL SULF 2.5 MG/0.5ML(0.5%) NEB SOLN NEB PRN ×2 (09:30→19:33)
[2020-11-27] MEDS: FUROSEMIDE 20 MG/2 ML VIAL IV SCH (09:59)
[2020-11-27] MEDS: SODIUM CHLOR 0.9% PF (SALINE LOCK) 10ML VIAL/SYR IV SCH ×2 (10:01→21:30)
[2020-11-27] MEDS: LEVOTHYROXINE SODIUM 100 MCG/5 ML INJ IV SCH (10:27)
[2020-11-27] MEDS: PANTOPRAZOLE 40 MG/10 ML VIAL INJ IV SCH (10:50)
[2020-11-27] MEDS: DexAMETHasone SOD PHOS 10MG/1ML VIAL INJ IV SCH (10:51)
[2020-11-27] MEDS: ENOXAPARIN SOD 40 MG/0.4 ML SYRINGE SC SCH (11:29)
[2020-11-27] MEDS: INSULIN LANTUS (GLARGINE) 1 /0.01ml (100units/ml) SC SCH (11:30)
[2020-11-27] MEDS: MIDAZOLAM DRIP 50 mg/50mL 50 ML IV SCH (12:30)
[2020-11-27] MEDS: PROPOFOL 100 ML IV SCH (12:57)
[2020-11-27] MEDS ORDERED: TPN PER PHARMACY IV NR ×10 (20:00)
[2020-11-28] VITALS (89 sets, daily range): BP systolic 85–127; BP diastolic 46–83
[2020-11-28] MEDS: ACCU-CHEK COMFORT CURVE STRIP VI SCH ×4 (00:20→18:18)
[2020-11-28] MEDS: AMPICILLIN INJ 1 GM in SODIUM CHL 0.9% 50 ML IV SCH ×3 (00:20→12:32)
[2020-11-28] MEDS: InsuLIN REG 1unit/0.01ml Soln (100units/ml) SC SCH ×4 (00:21→18:00)
[2020-11-28] MEDS: MIDAZOLAM DRIP 50 mg/50mL 50 ML IV SCH ×3 (00:56→21:53)
[2020-11-28] MEDS: PROPOFOL 100 ML IV SCH (01:57)
[2020-11-28 04:56] LABS: Potassium 4.3 mmol/L (3.5-5.1)
[2020-11-28 05:02] LABS: Albumin 2.5 g/dL (3.4-5.0); BUN/Creatinine Ratio 72.7; Bilirubin, Total 0.4 mg/dL (0.2-1.0); Calcium 7.6 mg/dL (8.5-10.1); Magnesium 2.6 mg/dL (1.6-2.6); Total Protein 6.3 g/dL (6.4-8.2)
[2020-11-28] MEDS: METOCLOPRAMIDE HCL 5MG/ml INJ 2ml VIAL IV SCH ×3 (05:45→21:04)
[2020-11-28] MEDS: NOREPINEPHRINE 8 MG/250ML KIT 250 ML IV SCH (10:00)
[2020-11-28] MEDS: SODIUM CHLOR 0.9% PF (SALINE LOCK) 10ML VIAL/SYR IV SCH ×2 (10:00→21:04)
[2020-11-28] MEDS: ENOXAPARIN SOD 40 MG/0.4 ML SYRINGE SC SCH (10:00)
[2020-11-28] MEDS: DexAMETHasone SOD PHOS 10MG/1ML VIAL INJ IV SCH (10:41)
[2020-11-28] MEDS: FUROSEMIDE 20 MG/2 ML VIAL IV SCH (10:42)
[2020-11-28] MEDS: PANTOPRAZOLE 40 MG/10 ML VIAL INJ IV SCH (10:43)
[2020-11-28] MEDS: LEVOTHYROXINE SODIUM 100 MCG/5 ML INJ IV SCH (10:43)
[2020-11-28] MEDS: fentaNYL Drip 2500mCg/250mlNS 250 ML IV SCH ×2 (10:43→21:24)
[2020-11-28] MEDS: BUDESONIDE (INHALATION) 0.5 MG/2 ML NEB NEB SCH ×2 (11:19→19:16)
[2020-11-28] MEDS: INSULIN LANTUS (GLARGINE) 1 /0.01ml (100units/ml) SC SCH (13:00)
[2020-11-28] MEDS ORDERED: levoFLOXacin 750MG 150 ML IV ONE (15:45)
[2020-11-28] MEDS: ALBUTEROL SULF 2.5 MG/0.5ML(0.5%) NEB SOLN NEB PRN (19:16)
[2020-11-28] MEDS ORDERED: TPN PER PHARMACY IV NR ×9 (20:00)
[2020-11-29] MEDS ORDERED: levoFLOXacin 750MG 150 ML IV SCH (10:00)
== END 2020-11-28 22:17 | DRG 207 ==
LOC: ER 10:53 → EDBD 10:53 → TELE 13:40 → ICU WEST 18:50
PROVIDERS: ADMIT Internal Medicine; ATTEND Internal Medicine
PROC: 5A09457 Assistance with Respiratory Ventilation, 24-96 Consecutive Hours, Continuous Positive Airway Pressure (ICD-10-PCS; 2020-11-08)
PROC: XW033E5 Introduction of Remdesivir Anti-infective into Peripheral Vein, Percutaneous Approach, New Technology Group 5 (ICD-10-PCS; 2020-11-08)
PROC: XW033H5 Introduction of Tocilizumab into Peripheral Vein, Percutaneous Approach, New Technology Group 5 (ICD-10-PCS; 2020-11-08)
PROC: XW13325 Transfusion of Convalescent Plasma (Nonautologous) into Peripheral Vein, Percutaneous Approach, New Technology Group 5 (ICD-10-PCS; principal; 2020-11-09)
PROC: 02HV33Z Insertion of Infusion Device into Superior Vena Cava, Percutaneous Approach (ICD-10-PCS; 2020-11-10)
PROC: 5A09357 Assistance with Respiratory Ventilation, Less than 24 Consecutive Hours, Continuous Positive Airway Pressure (ICD-10-PCS; 2020-11-12)
PROC: 5A09357 Assistance with Respiratory Ventilation, Less than 24 Consecutive Hours, Continuous Positive Airway Pressure (ICD-10-PCS; 2020-11-13)
PROC: 5A09357 Assistance with Respiratory Ventilation, Less than 24 Consecutive Hours, Continuous Positive Airway Pressure (ICD-10-PCS; 2020-11-14)
PROC: 5A09457 Assistance with Respiratory Ventilation, 24-96 Consecutive Hours, Continuous Positive Airway Pressure (ICD-10-PCS; 2020-11-17)
PROC: 5A1955Z Respiratory Ventilation, Greater than 96 Consecutive Hours (ICD-10-PCS; 2020-11-19)
PROC: 0BH17EZ Insertion of Endotracheal Airway into Trachea, Via Natural or Artificial Opening (ICD-10-PCS; 2020-11-19)
PROC: 02H633Z Insertion of Infusion Device into Right Atrium, Percutaneous Approach (ICD-10-PCS; 2020-11-23)
PROC: 3E0436Z Introduction of Nutritional Substance into Central Vein, Percutaneous Approach (ICD-10-PCS; 2020-11-25)
DX: U07.1 COVID-19 (principal); J96.01 Acute respiratory failure with hypoxia; N17.0 Acute kidney failure with tubular necrosis; E43 Unspecified severe protein-calorie malnutrition; J12.82 Pneumonia due to coronavirus disease 2019; J15.6 Pneumonia due to other Gram-negative bacteria; R65.10 Systemic inflammatory response syndrome (SIRS) of non-infectious origin without acute organ dysfunction; J98.11 Atelectasis; I47.2 Ventricular tachycardia; N39.0 Urinary tract infection, site not specified; Z99.11 Dependence on respirator [ventilator] status; D89.839 Cytokine release syndrome, grade unspecified; D69.6 Thrombocytopenia, unspecified; Q90.9 Down syndrome, unspecified; D64.9 Anemia, unspecified; R79.89 Other specified abnormal findings of blood chemistry; I10 Essential (primary) hypertension; E03.9 Hypothyroidism, unspecified; B95.2 Enterococcus as the cause of diseases classified elsewhere; Z68.30 Body mass index [BMI] 30.0-30.9, adult; Z82.49 Family history of ischemic heart disease and other diseases of the circulatory system; Z83.3 Family history of diabetes mellitus
CPT/HCPCS: 36415; 36569; 36600; 71045; 76705; 80053; 81001; 82040; 82306; 82728; 82805; 82962; 83036; 83605; 83735; 84100; 84443; 84478; 84702; 85007; 85025; 85027; 85049; 85379; 85610; 85730; 86141; 86850; 86900; 86901; 87040; 87070; 87077; 87081; 87086; 87088; 87186; 87205; 87426; 93306; 94002; 94003; 94640; 94660; 96361; 96365; 96366; 96368; 96375; C9113; G0378; J0330; J1100; J1815; J1956; J2001; J2250; J2704; J3490; J7060; J7131